=== PATIENT | female | born 1975 | race Hispanic/Latino ===

== ENCOUNTER 2018-03-21 10:09 | Outpatient (CLI) | payer BC | END 2018-03-21 10:10 | disposition home or self-care (01) | LOC: BICMAMMO 10:09 | PROVIDERS: ATTEND Student in an Organized Health Care Education/Training Program | DX: Z12.31 Encounter for screening mammogram for malignant neoplasm of breast (principal); R92.1 Mammographic calcification found on diagnostic imaging of breast; Z80.3 Family history of malignant neoplasm of breast | CPT/HCPCS: 77063; 77067 ==

== ENCOUNTER 2020-02-08 16:05 | Emergency (ER) | payer BC, OTHER | END 2020-02-08 16:43 | disposition home or self-care (01) | LOC: ERS 16:05 | DX: R50.9 Fever, unspecified (principal); R06.02 Shortness of breath; R07.81 Pleurodynia; Z20.828 Contact with and (suspected) exposure to other viral communicable diseases | CPT/HCPCS: 99283 ==

== ENCOUNTER 2020-02-11 08:02 | Emergency (ER) | payer BC, OTHER ==
[2020-02-11] MEDS ORDERED: Dexamethasone 10 MG/ML VIAL ONE (08:28)
[2020-02-11] MEDS ORDERED: Acetaminophen 500 MG TAB ONE (08:28)
[2020-02-11] MEDS ORDERED: Ondansetron ODT 4 MG TAB ONE (08:28)
--- NOTE | 2020-02-11 11:07 | RAD ---
PORTABLE CHEST: DATE: 02/11/2020. PROVIDED CLINICAL HISTORY: Cough and fever. FINDINGS: Cardiac and mediastinal silhouette is within normal limits for portable technique. No focal consolid ation, pleural fluid, or pneumothorax apparent. IMPRESSION: No evidence for an acute cardiopulmonary process. POS: [facility]
[2020-02-12 12:19] LABS: SARS-CoV-2 MS2 Positive; SARS-CoV-2 N Gene Positive; SARS-CoV-2 S Gene Positive; SARS-CoV-2 orf1ab Positive
== END 2020-02-11 09:32 | disposition home or self-care (01) ==
LOC: ERS 08:02
DX: U07.1 COVID-19 (principal); E11.9 Type 2 diabetes mellitus without complications; Z79.84 Long term (current) use of oral hypoglycemic drugs
CPT/HCPCS: 71045; 87635; J1100; Q0162; U0003

== ENCOUNTER 2020-05-22 06:51 | Outpatient (CLI) | payer BC ==
--- NOTE | 2020-05-22 07:49 | ULT ---
Sonogram right upper quadrant HISTORY: Abnormal liver function tests. FINDINGS: Gallbladder surgically absent. Common duct is 0.6 cm. Liver is diffusely echogenic without focal mass or intrahepatic biliary dilatation. No free fluid. IMPRESSION : Hepato-steatosis. No focal abnormalities. Status post cholecystectomy.
== END 2020-05-22 06:52 | disposition home or self-care (01) ==
LOC: BICULT 06:51
PROVIDERS: ATTEND Family Medicine
DX: R74.01 Elevation of levels of liver transaminase levels (principal); K76.0 Fatty (change of) liver, not elsewhere classified; Z90.49 Acquired absence of other specified parts of digestive tract
CPT/HCPCS: 76705